=== PATIENT | female | born 2005 | race Caucasian/White ===

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

== ENCOUNTER 2025-02-22 21:21 | Emergency (ER) | payer BC, OTHER ==
[2025-02-22 23:41] LABS: BASOPHILS ABSOLUTE AUTO 0.02 K/uL (0.00-0.30); BASOPHILS PERCENT AUTO 0.3 % (0.0-1.0); EOSINOPHILS PERCENT AUTO 1.3 % (0.0-5.0); HEMATOCRIT 38.1 % (37.0-47.0); HEMOGLOBIN 12.3 g/dL (12.0-16.0); IMMATURE GRAN ABSOLUTE AUTO 0.01 K/uL (0.00-0.05); IMMATURE GRAN PERCENT AUTO 0.1 % (0.0-0.4); LYMPHOCYTES ABSOLUTE AUTO 2.69 K/uL (2.00-8.80); LYMPHOCYTES PERCENT AUTO 34.1 % (50.0-65.0); MEAN CORPUSCULAR HEMOGLOBIN 29.2 pg (28.0-32.0); MEAN CORPUSCULAR HGB CONC 32.3 g/dL (32.0-36.0); MEAN CORPUSCULAR VOLUME 90.5 fL (83.0-99.0); MEAN PLATELET VOLUME 11.4 fL (9.4-12.3); MONOCYTES ABSOLUTE AUTO 0.73 K/uL (0.10-1.40); MONOCYTES PERCENT AUTO 9.3 % (2.0-10.0); NEUTROPHILS ABSOLUTE AUTO 4.34 K/uL (1.50-8.50); NEUTROPHILS PERCENT AUTO 54.9 % (35.0-45.0); PLATELET COUNT,PLT 317 K/uL (150-400); RED BLOOD CELL COUNT 4.21 M/uL (4.10-5.30); WHITE BLOOD CELL COUNT,WBC 7.89 K/uL (4.5-13.5)
[2025-02-22] MEDS: Sodium Chloride 0.9% 1,000 ML IV ONE (23:51)
[2025-02-22] MEDS: Ondansetron 4 MG/2 ML SDV IVPUSH ONE (23:51)
[2025-02-22] MEDS: Ketorolac 30 MG/ML SDV IVPUSH ONE (23:51)
[2025-02-23 00:03] LABS: A/G RATIO 1.1 (0.9-1.6); ALANINE AMINOTRANSFERASE,ALT 26 IU/L (14-63); ALBUMIN 4.5 g/dL (3.4-5.0); ALKALINE PHOSPHATASE 76 U/L (46-116); ASPARTATE AMNIOTRANSFERASE,AST 20 IU/L (15-37); BILIRUBIN TOTAL 0.4 mg/dL (0.2-1.0); BLOOD UREA NITROGEN,BUN 13 mg/dL (7.0-18.0); CALCIUM 9.6 mg/dL (8.5-10.1); CARBON DIOXIDE,CO2 28.3 mmol/L (21.0-32.0); CHLORIDE,CL 103 mmol/L (98-107); CREATININE 0.8 mg/dL (0.6-1.0); GLUCOSE RANDOM 98 mg/dL (74-106); LIPASE 39 U/L (16-77); POTASSIUM,K 3.5 mmol/L (3.5-5.1); PROTEIN TOTAL,TP 8.6 g/dL (6.4-8.2); SODIUM,NA 140 mmol/L (136-145)
[2025-02-23 00:04] LABS: ESTIMATED GFR 109 mL/min (>60)
[2025-02-23] MEDS: Iopamidol 755 MG/ML 500 ML Multipack Bottle IVPUSH ONE (00:04)
== END 2025-02-23 01:37 | disposition home or self-care (01) ==
LOC: MW.ED 21:21
DX: R10.32 Left lower quadrant pain (principal); Z75.8 Other problems related to medical facilities and other health care; Z79.899 Other long term (current) drug therapy
CPT/HCPCS: 36415; 74177; 76830; 80048; 80076; 81025; 83690; 85025; 96361; 96374; 96375; 99284; J1885; J2405; J7030; Q9967; 99283

== ENCOUNTER 2025-06-22 20:21 | Emergency (ER) | payer OTHER | END 2025-06-22 21:31 | disposition home or self-care (01) | LOC: MW.ED 20:21 | DX: G56.21 Lesion of ulnar nerve, right upper limb (principal); F17.200 Nicotine dependence, unspecified, uncomplicated; Z79.899 Other long term (current) drug therapy; Z75.3 Unavailability and inaccessibility of health-care facilities | CPT/HCPCS: 73110-26-RT; 73110-RT; 99282; 99283 ==